=== PATIENT | male | born 1965 | race Hispanic/Latino ===

== ENCOUNTER 2025-01-25 10:45 | Emergency (ER) | payer OTHER ==
[2025-01-25 11:31] LABS: Absolute Lymphocytes (CBC) 0.5 K/uL (0.7-4.9); Absolute Neutrophil 12.8 K/uL (1.8-8.0); Basophils % 0.2 % (0-1.3); Eosinophils % 0.1 % (0-4.4); Hematocrit 39.5 % (39.6-49.0); Hemoglobin 13.1 g/dL (13.6-17.9); Lymphocytes % 3.7 % (15.3-44.8); MCH 29.6 pg (27.0-35.0); MCHC 33.2 g/dL (32.0-36.0); Monocytes % 6.9 % (3.3-12.3); Neutrophils % 89.1 % (41.7-73.7); Platelets 259 thou/uL (152-406); RBC Red Blood Cell Count 4.44 M/uL (4.33-5.43); Red Cell Distribution Width 14.2 % (12.1-15.2)
[2025-01-25 11:40] LABS: Albumin/Globulin Ratio 0.9 (1.1-1.8); Anion Gap 6.4 mEq/L (5.0-15.0); Bilirubin Total 0.3 mg/dL (0.2-1.0); Globulin 4.3 g/dL (2.3-3.5); Potassium 3.4 mEq/L (3.5-5.1); Protein, Total 8.3 g/dL (6.4-8.2)
--- NOTE | 2025-01-25 11:45 | RAD REPORT ---
EXAM: CT face with contrast HISTORY: Facial pain and swelling COMPARISON: None TECHNIQUE: Multiple contiguous axial images were obtained and a CT of the face with contrast. Sagitta l and coronal reformats were performed. Automated exposure control, adjustment of the mA and/or kV according to patient size, and/or iterative reconstruction. Unless otherwise specified, incidental f indings do not require dedicated imaging follow-up. FINDINGS: Increased density is present within the subcutaneous tissues of the right face.. Lucencies are present within the root of several right mandibular teeth consistent with abscesses. Fluid within the sinuses is not present. Visualized airway unremarkable IMPRESSION: Periapical right mandibular abscesses. Increased density within the superficial soft tissue likely cellulitis.
--- NOTE | 2025-01-25 11:46 | RAD REPORT ---
EXAM: CT brain without contrast HISTORY: Seizure COMPARISON: None TECHNIQUE: Multiple contiguous axial images were obtained and a CT of the brain without contrast.. Sagittal and coronal reconstruction performed. Automated exposure control, adjustment of the mA and/or kV according to patient size, and/or iterative reconstruction. Unless otherwise specified, incidental f indings do not require dedicated imaging follow-up FINDINGS: Images are degraded by patient motion artifact Agenesis corpus callosum. 4.6 cm arachnoid cyst right temporal fossa Increased density is present within the right occipital and right temporal lobes. No hydrocephalus. No extra-axial fluid collection noted No significant hypodensity within the brain No fluid within the visualized sinuses or mastoids noted. IMPRESSION: Agenesis corpus callosum Increased density right occipital and right parietal lobes probably calcification rather than blood. However, it is recommended that the patient have an MRI of the brain for further evaluation.
[2025-01-25 13:06] LABS: Blood Morphology Comment NOT SEEN (NOT SEEN); Platelet Estimate ADEQ; White Blood Cell Scan OK (OK)
[2025-01-25] MEDS ORDERED: AMPICILLIN/SULBACTAM 3GM/VIAL ONE (13:12)
[2025-01-25] MEDS ORDERED: NA CHLORIDE 0.9% 1,000 ML ONE (13:13)
[2025-01-25] MEDS ORDERED: NA CHLORIDE 0.9% 100 ML ONE (13:13)
[2025-01-25 13:40] LABS: PT Prothrombin Time 13.4 SECONDS (10.0-13.0); PTT, Activated Partial Thromb 25.1 SECONDS (24.3-36.9); Protime INR 1.18
[2025-01-25] MEDS ORDERED: DIAZEPAM 10 MG/2 ML INJ SYRINGE ONE (16:15)
--- NOTE | 2025-01-25 17:54 | RAD REPORT ---
EXAMINATION: MRI BRAIN WITHOUT CONTRAST CLINICAL INDICATION: Male, [address] Seizure TECHNIQUE: Multiplanar multisequence MR images of the brain were obtained without intravenous contras t. Unless otherwise specified, incidental findings do not require dedicated imaging follow-up. COMPARISON: Head CT of the same day FINDINGS: INTRACRANIAL: Changes of complete corpus callosum agenesis. Diffusion-weighted images show no acute or early subacute infarction. Asymmetric atrophic changes involving the cortex and subcortical white matter, involving the bilateral occipital lobes, bilateral medial parietal lobes, and right tem poroparietal region, with corresponding FLAIR signal abnormality and gyriform right parietotemporal cortical low gradient signal. The ventricles demonstrate changes of colpocephaly. Serpiginous gradien t signal abnormality also present along the surgical right frontal sulci. Prominent CSF space in the lower aspect of the posterior fossa. There is no mass effect or midline shift. No abnormal extraa xial fluid collection. VASCULATURE: Normal signal voids in the larger intracranial arteries and dural venous sinuses. SINUSES: The paranasal sinuses and mastoid air cells are predominantly clear. BONE: Asymmetric calvarium thickening along the right parieto-occipital convexity. IMPRESSION: Asymmetric atrophic changes of the bilateral occipital, parietal, and right temporoparietal lobes, wi th corresponding signal abnormality and gyriform mineralization, compatible with sequelae of insult. The morphology is reminiscent of near hemispheric insult, may correlate to findings of Eowq-Ckddesnj-Vmqsep syndrome. Serpiginous right frontal parasagittal gradient signal abnormality may reflect a small developmental venous anomaly or sequelae of remote hemorrhage. No evidence of acute intracranial hemorrhage or territorial infarct.
--- NOTE | 2025-01-25 18:30 | ER ---
Nurse's Notes [facility] Name: Herber Rodriguez Age: 59 yrs Sex: Male : 1965 Arrival Date: 01/25/2025 Time: 10:45 Bed 23 Private MD: Diagnosis: Facial cellulitis Presentation: 01/25 11:03 Chief complaint: Right lower facial swelling today, seizure last night. Hx of seizures hb and cerebral palsy. Coronavirus screen: At this time, the client does not indicate any symptoms associated with coronavirus-19. Ebola Screen: No symptoms or risks identified at this time. Initial Sepsis Screen: Does the patient meet any 2 criteria? No. Patient's initial sepsis screen is negative. Does the patient have a suspected source of infection? No. Patient's initial sepsis screen is negative. Risk Assessment: Do you want to hurt yourself or someone else? Patient reports no desire to harm self or others. Onset of symptoms was January 24, 2025. 11:03 Method Of Arrival: Stretcher 11:03 Acuity: GURINDER 3 hb Historical: - Allergies: 11:04 No Known Allergies; hb - PMHx: 11:04 Seizure; Cerebral palsy; hb - Immunization history:: Adult Immunizations up to date. - Infectious Disease History:: Denies. - Social history:: Smoking status: Patient denies any tobacco usage or history of. Screenin:10 [facility] ED Fall Risk Assessment (Adult) History of falling in the last 3 months, me1 including since admission No falls in past 3 months (0 pts) Confusion or Disorientation No (0 pts) Intoxicated or Sedated No (0 pts) Impaired Gait No (0 pts) Mobility Assist Device Used No (0 pt) Altered Elimination No (0 pt) Score/Fall Risk Level 0 - 2 = Low Risk Maintained a safe environment, Provided non-skid footwear, Hourly rounding (assess needs \T\ fall precautionary measures) done. Abuse screen: Denies threats or abuse. Nutritional screening: No deficits noted. Tuberculosis screening: No symptoms or risk factors identified. Assessment: 12:10 General: Appears in no apparent distress. Behavior is calm, cooperative, appropriate me1 for age, Reports Right lower facial swelling today, seizure last night. Hx of seizures and cerebral palsy. Pain: Unable to use pain scale. Does not appear to understand pain scale. Neuro: Level of Consciousness is awake, alert, obeys commands, Oriented to person, place, time, situation, Appropriate for age. Neuro: Seizure activity last night. Cardiovascular: Patient's skin is warm and dry. Respiratory: Airway is patent Respiratory effort is even, unlabored, Respiratory pattern is regular, symmetrical. GI: No signs and/or symptoms were reported involving the gastrointestinal system. : No signs and/or symptoms were reported regarding the genitourinary system. EENT:. Derm: Skin is healthy with good turgor, Skin is pink, warm \T\ dry. swelling to right lower face. Musculoskeletal: contractures to all extremities. Vital Signs: 11:03 Pulse 101; Resp 18; Temp 98.3(A); Pulse Ox 96% on R/A; hb 12:00 BP 124 / 92; Pulse 97; Resp 16; Pulse Ox 95% ; me1 13:00 BP 129 / 90; Pulse 96; Resp 16; Pulse Ox 96% ; me1 14:00 BP 137 / 96; Pulse 93; Resp 19; Pulse Ox 97% ; me1 15:00 BP 129 / 92; Pulse 93; Resp 20; Pulse Ox 98% ; me1 16:00 BP 137 / 90; Pulse 93; Resp 18; Pulse Ox 97% ; me1 17:00 BP 128 / 80; Pulse 96; Resp 16; Pulse Ox 97% ; me1 18:00 BP 123 / 88; Pulse 92; Resp 17; Pulse Ox 97% ; me1 18:53 BP 127 / 82; Pulse 93; Resp 16; Temp 98.4; Pulse Ox 96% ; me1 ED Course: 10:55 Patient arrived in ED. cj3 10:57 Thomas Bush MD is Attending Physician. rt 11:04 Triage completed. hb 11:05 Arm band placed on. hb 11:16 Inserted saline lock: 24 gauge in right forearm, using aseptic technique. zm 11:16 CMP Sent. zm 11:16 CBC with Diff Sent. zm 11:32 CT Head Brain wo Cont In Process Unspecified. EDMS 11:32 CT Facial Bones W/ Con \T\ Mpr In Process Unspecified. EDMS 12:10 Patient has correct armband on for positive identification. Bed in low position. Call me1 light in reach. Side rails up X2. Provided Education on: POC. Verbalized understanding.. Client placed on continuous cardiac and pulse oximetry monitoring. NIBP monitoring applied. Pulse ox on. NIBP on. 12:10 No provider procedures requiring assistance completed. me1 12:14 Giana Worthington, RN is Primary Nurse. me1 14:08 Lactate w/ 2H reflex if indic. Sent. me1 16:48 MRI - Brain Wo Cont In Process Unspecified. EDMS 18:54 IV discontinued, intact, bleeding controlled, No redness/swelling at site. Pressure me1 dressing applied. Administered Medications: 13:25 Drug: NS 0.9% IV 1000 ml IV at 1000 ml once; to be given as a bolus over 60 minutes me1 Route: IV; Rate: 1000 ml; Site: right forearm; 18:52 Follow up: Response: No adverse reaction; IV Status: Completed infusion me1 13:25 Drug: Ampicillin-Sulbactam Sodium IVPB 3 grams IVPB once over 30 mins; (mix in 100 mL me1 NS) Route: IVPB; Infused Over: 30 mins; Site: right forearm; 14:08 Follow up: Response: No adverse reaction; IV Status: Completed infusion me1 16:16 Not Given (Duplicate Order): [id number] mg IVP once; for mri rt 16:31 Drug: Diazepam IVP 5 mg IVP once Route: IVP; Site: left forearm; me1 18:52 Follow up: Response: No adverse reaction me1 Medication: 12:10 VIS not applicable for this client. me1 Outcome: 18:30 Discharge ordered by . rt 19:05 Discharged to home via wheelchair, me1 19:05 Condition: stable 19:05 Discharge instructions given to family, Instructed on discharge instructions, follow up and referral plans. medication usage, Demonstrated understanding of instructions, follow-up care, medications, Prescriptions given X 2, 19:05 Patient left the ED. me1 Signatures: Dispatcher [employer] EDMS June Calixto RN RN Beverly Johnson Ryan, MD MD rt Giana Worthington, IDA RN me1 Romelia Singh [email or web address] Corrections: (The following items were deleted from the chart) 13:06 11:03 Chief complaint: Right lower facial swelling today, seizure last night. Hx of me1 seizures and cerebral palsy hb
--- NOTE | 2025-01-25 18:30 | EDPHYS ---
Physician Documentation [facility] Name: Herber Rodriguez Age: 59 yrs Sex: Male : 1965 Arrival Date: 01/25/2025 Time: 10:45 Bed 23 Private MD: ED Physician Thomas Bush HPI: 01/25 11:21 This 59 yrs old Male presents to ER via Stretcher with complaints of Facial rt Swelling. 11:21 History limited due to nonverbal patient, history was obtained per patient's mother. rt Mother reports that the patient had facial swelling, right-sided facial droop first noticed this morning. He reportedly had a seizure last night which was not unusual for him. Mother denies any new neurologic symptoms, symptoms are moderate in severity, no other aggravating or alleviating factors.. Historical: - Allergies: 11:04 No Known Allergies; hb - PMHx: 11:04 Seizure; Cerebral palsy; hb - Immunization history:: Adult Immunizations up to date. - Infectious Disease History:: Denies. - Social history:: Smoking status: Patient denies any tobacco usage or history of. ROS: 11:21 Unable to obtain ROS due to Nonverbal patient, rt Exam: 11:21 Chest/axilla: Normal chest wall appearance and motion. Nontender with no deformity. rt No lesions are appreciated. Cardiovascular: Regular rate and rhythm with a normal S1 and S2. No gallops, murmurs, or rubs. Normal PMI, no JVD. No pulse deficits. Respiratory: Lungs have equal breath sounds bilaterally, clear to auscultation and percussion. No rales, rhonchi or wheezes noted. No increased work of breathing, no retractions or nasal flaring. Abdomen/GI: Soft, non-tender, with normal bowel sounds. No distension or tympany. No guarding or rebound. No evidence of tenderness throughout. 11:21 Constitutional: The patient appears Nonverbal, contractures 11:21 Head/face: Facial swelling with mild erythema noted to the right lower jaw at the submental area, multiple dental caries noted.. 11:21 Neuro: Nonverbal patient, contractures noted to all 4 extremities., Vital Signs: 11:03 Pulse 101; Resp 18; Temp 98.3(A); Pulse Ox 96% on R/A; hb 12:00 BP 124 / 92; Pulse 97; Resp 16; Pulse Ox 95% ; me1 13:00 BP 129 / 90; Pulse 96; Resp 16; Pulse Ox 96% ; me1 14:00 BP 137 / 96; Pulse 93; Resp 19; Pulse Ox 97% ; me1 15:00 BP 129 / 92; Pulse 93; Resp 20; Pulse Ox 98% ; me1 16:00 BP 137 / 90; Pulse 93; Resp 18; Pulse Ox 97% ; me1 17:00 BP 128 / 80; Pulse 96; Resp 16; Pulse Ox 97% ; me1 18:00 BP 123 / 88; Pulse 92; Resp 17; Pulse Ox 97% ; me1 18:53 BP 127 / 82; Pulse 93; Resp 16; Temp 98.4; Pulse Ox 96% ; me1 MDM: 11:02 Medical Screening Exam initiated rt 20:36 Differential diagnosis: Facial cellulitis, facial abscess, intracranial hemorrhage, rt CVA. TNKase (Tenecteplase) Screening: Not Applicable. Data reviewed: vital signs, nurses notes, lab test result(s), radiologic studies. Consideration of Admission/Observation Escalation of care including admission/observation considered. Discussed admission with mother given leukocytosis. Mother states that she strongly wishes for the patient to be discharged with oral antibiotics, she will return for worsening symptoms.. I considered the following discharge prescriptions or medication management in the emergency department Medications were administered in the Emergency Department. See MAR. Independent interpretation of the following test(s) in the Emergency Department CT Scan: My interpretation is No obvious intracranial hemorrhage seen on my interpretation of CT scan images. Care significantly affected by the following chronic conditions: Cerebral palsy. Counseling: I had a detailed discussion with the patient and/or guardian regarding the historical points, exam findings, and any diagnostic results supporting the discharge/admit diagnosis, lab results, radiology results, the need for outpatient follow up, to return to the emergency department if symptoms worsen or persist or if there are any questions or concerns that arise at home. Response to treatment: the patient's symptoms have mildly improved after treatment. 01/25 11:03 Order name: CBC with Diff; Complete Time: 13:49 rt 01/25 11:03 Order name: CMP; Complete Time: 11:48 rt 01/25 11:36 Order name: CBC Smear Scan; Complete Time: 13:49 EDMS 01/25 11:48 Order name: CREATININE WHOLE BLOOD; Complete Time: 11:48 EDMS 01/25 12:30 Order name: Blood Culture Adult (2) rt 01/25 12:30 Order name: Protime (+inr); Complete Time: 13:49 rt 01/25 12:30 Order name: Ptt, Activated; Complete Time: 13:49 rt 01/25 13:50 Order name: Lactate w/ 2H reflex if indic.; Complete Time: 14:29 rt 01/25 11:03 Order name: CT Head Brain wo Cont; Complete Time: 11:48 rt 01/25 11:03 Order name: CT Facial Bones W/ Con \T\ Mpr; Complete Time: 11:48 rt 01/25 12:30 Order name: MRI - Brain Wo Cont; Complete Time: 18:04 rt 01/25 12:30 Order name: Accucheck; Complete Time: 18:52 rt 01/25 12:30 Order name: Cardiac monitoring; Complete Time: 14:12 rt 01/25 12:30 Order name: IV Saline Lock - Large Bore; Complete Time: 13:03 rt 01/25 12:30 Order name: Labs collected and sent; Complete Time: 13:03 rt 01/25 12:30 Order name: O2 Per Protocol; Complete Time: 13:03 rt 01/25 12:30 Order name: O2 Sat Monitoring; Complete Time: 13:03 rt 01/25 12:30 Order name: Vital Signs; Complete Time: 13:03 rt Administered Medications: 13:25 Drug: NS 0.9% IV 1000 ml IV at 1000 ml once; to be given as a bolus over 60 minutes me1 Route: IV; Rate: 1000 ml; Site: right forearm; 18:52 Follow up: Response: No adverse reaction; IV Status: Completed infusion me1 13:25 Drug: Ampicillin-Sulbactam Sodium IVPB 3 grams IVPB once over 30 mins; (mix in 100 mL me1 NS) Route: IVPB; Infused Over: 30 mins; Site: right forearm; 14:08 Follow up: Response: No adverse reaction; IV Status: Completed infusion me1 16:16 Not Given (Duplicate Order): [id number] mg IVP once; for mri rt 16:31 Drug: Diazepam IVP 5 mg IVP once Route: IVP; Site: left forearm; me1 18:52 Follow up: Response: No adverse reaction me1 Disposition Summary: 01/25/25 18:30 Discharge Ordered Notes: Location: Home rt Problem: new rt Symptoms: have improved rt Condition: Stable rt Diagnosis - Facial cellulitis rt Followup: rt - With: Private Physician - When: 2 - 3 days - Reason: Discharge Instructions: - Discharge Summary Sheet rt - Cellulitis, Adult rt Forms: - Medication Reconciliation Form rt - Antibiotic Education rt - Prescription Opioid Use rt - Patient Portal Instructions rt - Leadership Thank You Letter rt Prescriptions: - Augmentin ES-600 600-42.9 mg/5 mL Oral Suspension for Reconstitution - take 7 milliliter ORAL route every 12 hours for 10 days Max = 1750mg/day; 140 rt milliliter; Refills: 0, Product Selection Permitted Signatures: Dispatcher [employer] EDMS June Calixto, IDA RN Thomas Bush MD MD rt Giana Worthington RN RN me1 Corrections: (The following items were deleted from the chart) 11:04 11:04 CBC+H.LAB.BRZ ordered. EDMS EDMS 11:04 11:04 COMPREHENSIVE METABOLIC PANEL+C.LAB.BRZ ordered. EDMS EDMS 11:04 11:04 Head Brain Wo Cont+CT.RAD.BRZ ordered. EDMS EDMS 11:04 11:04 Facial Bones W/ Con \T\ MPR+CT.RAD.BRZ ordered. EDMS EDMS 12:30 12:30 BLOOD CULTURE*+BA.LAB.BRZ ordered. EDMS EDMS 12:30 12:30 PROTIME (+INR)+COAG.LAB.BRZ ordered. EDMS EDMS 12:30 12:30 PTT, ACTIVATED+COAG.LAB.BRZ ordered. EDMS EDMS
[2025-01-25 19:59] VITALS: BP 127/82; TEMP 98.4; O2SAT 96
== END 2025-01-25 19:05 | disposition home or self-care (01) ==
LOC: ER 10:45
DX: L03.211 Cellulitis of face (principal); G80.9 Cerebral palsy, unspecified
CPT/HCPCS: 96365; 96361; 87040 ×2; 85025; 36415; 85610; 82565; 83605; 85730; 80053; 70450; 70487; 76377; 70551; 96375; 99284; Q9967; J3360; J0295; J7030